=== PATIENT | male | born 1975 | race Hispanic/Latino ===

== ENCOUNTER 2025-05-14 08:11 | Emergency (ER) | payer OTHER ==
[~2025-05-14] VITALS: Ht 180.3 cm; Wt 86.2 kg
--- NOTE | 2025-05-14 08:51 | ERN ---
General Chief Complaint: Abdominal Pain Stated Complaint: ABDOMINAL PAIN Time Seen by MD: 08:13 Source: patient History of Present Illness Initial Comments Patient is a 49-year-old male coming in to be evaluated for suprapubic discomfort. Per patient this started suddenly earlier today. No fever no chills no vomiting. Allergies: Coded Allergies: No Known Allergies (Unverified Allergy, Unknown, 05/14/25) Past Medical History Past Medical History: No Pertinent History Past Surgical History: None ROS Dictation CONSTITUTIONAL: No chills, no fever, no weakness, no diaphoresis, no malaise. HEAD/FACE: No signs of trauma. EENT: No eye pain, no blurred vision, no tearing, no double vision, no ear pain, no ear discharge, no nose pain, no nasal congestion, no throat pain, no throat swelling, no mouth pain. RESPIRATORY: No cough, no orthopnea, no SOB, no stridor, no wheezing. CARDIOVASCULAR: No chest pain, no edema, no palpitations, no syncope. GASTROINTESTINAL/ABDOMINAL: abdominal pain, no constipation, no diarrhea, no nausea, no vomiting. GENITOURINARY: No abnormal discharge, no dysuria, no frequent urination, no hematuria. No complaints of pain in the genitals. MUSCULOSKELETAL: No back pain, no gout, no joint pain, no joint swelling, no muscle pain, no muscle stiffness, no neck pain. INTEGUMENTARY: No change in color, no change in hair/nails, no dryness, no lesion, no lumps, no rash. NEUROLOGICAL/PSYCH: No anxiety, not depressed, no emotional problem, no headache, no numbness, no pre-existing deficit, no history of seizures, no tremors, no weakness. HEMATOLOGIC/LYMPHATIC: Not anemic, no history of blood clots, no apparent bleeding, no bruising, glands not swollen. All Systems Negative, Except as Noted. Physical Exam Physical Exam Dictation VITAL SIGNS: Reviewed. GENERAL APPEARANCE: Alert, oriented x3, no acute distress, obese. HEAD AND FACE: Non-traumatic. EYES: PERRL, pink conjunctivas, eyelid no trauma, anterior chamber clear. EARS: Pinnas intact and no signs of trauma or erythema. Ear canals clear and no discharge. TMs no erythema. NOSE: No discharge, no bleeding. OROPHARYNX: Mouth normal, teeth no caries, tongue pink. Pharynx clear, no erythema. Tonsils no exudates, no abscesses noted. Mucous membrane moist. NECK: Supple, non-tender, no thyromegaly, no masses, no JVD, no bruits. BREAST: Deferred. CHEST: No tenderness, no crepitus, no paradoxical movement, no retractions. LUNGS: Clear, well-ventilated, symmetric, no rales, no wheezing, no rhonchi, no stridor, good breath sounds bilaterally. HEART: Regular rate, regular rhythm, no murmur, no gallops. VASCULAR: No peripheral edema. ABDOMEN: Soft, positive bowel sounds, nondistended, no guarding, suprapubic discomfort, umbilical pain, no rebound, no masses no hepatomegaly, no splenomegaly, no Freitas's sign, no hernias. RECTAL: Deferred. GENITAL: Deferred. NEUROLOGICAL: Normal speech, gross motor function intact, gross sensory function intact. MUSCULOSKELETAL: Neck nontender, full range of motion, back nontender, full range of motion. EXTREMITIES: Nontender, full range of motion. SKIN: Color pink, dry, no turgor, no rash, no lacerations, no abrasions, no contusions. LYMPHATICS: Deferred. Results Laboratory and Microbiology Labs Reviewed?: Yes EKG/XRAY/US/CT/MRI Ultrasound Comment Ultrasound abdomen-umbilical hernia MDM MDM: Differential diagnosis: Umbilical hernia, abdominal pain, muscle strain Rationale: Tests considered and ordered secondary to shared decision making include: Previous outside records reviewed: Old ER visits. Risk of complication and/or morbidity or mortality of patient management: None Medications-Per medication reconciliation Need for hospitalization: Patient does not meet criteria for hospitalization. Patient is a 49-year-old male coming in to be evaluated for pubic medical discomfort. On physical exam patient does have an umbilical hernia ultrasound confirms it. Umbilical hernia was reduced and patient's symptoms improved significantly. Abdominal binder divided. It did advised him appropriate follow up with PCP in 1-2 days ED Course Orders Procedure Category Date Status Time Us Abd Limited/Abd US 05/14/25 Taken Wall 08:14 Vital Signs Date Time Temp Pulse Resp B/P (MAP) Pulse Ox O2 Delivery O2 Flow Rate FiO2 05/14/25 08:24 97.5 18 123/72 99 Room Air* 0 21 05/14/25 08:12 97.7 50 16 119/76 99 Room Air 0 Procedure Dictation -umbilical hernia- reduction successful DX & DISP Disposition: Discharge Departure Impression: Primary Impression: Umbilical hernia Condition: Stable Additional Instructions: FOLLOW-UP WITH PRIMARY CARE PROVIDER IN 1 TO 2 DAYS. TAKE MEDICATIONS DIRECTED HERE IN THE EMERGENCY ROOM. OKAY TO CONTINUE HOME MEDICATIONS UNLESS OTHERWISE DISCUSSED DURING YOUR VISIT IN THE EMERGENCY ROOM TODAY. RETURN TO YOUR NEAREST EMERGENCY ROOM IF SYMPTOMS WORSEN OR IF THERE IS NO IMPROVEMENT. CALL 911 IF YOU NEED IMMEDIATE ASSISTANCE. TAKE TYLENOL [id number] NEEDED AND IF NO CONTRAINDICATIONS ARE PRESENT. INCREASE ORAL HYDRATION. A WOUND CULTURE OR URINE CULTURE WAS ORDERED HERE IN THE EMERGENCY ROOM DEPARTMENT PLEASE FOLLOW-UP WITH PRIMARY CARE PROVIDER AND ADVISE THEM TO GET REPORTS FROM OUR FACILITY. IF YOU HAD ANY MATTIE WRAP/SPLINTS THAT WERE APPLIED HERE, PLEASE DO NOT REMOVE THEM UNTIL YOU SEE YOUR PRIMARY CARE OR SPECIALTY. Referrals: Referrals: SELF,REFERRAL (PCP) ANDRES CARDOSO LUIS A MD Time of Disposition: 08:51 PEREZ FOUNTAIN MD May 14, 2025 08:51
--- NOTE | 2025-05-14 08:56 | HMCIMG ---
US ABD LIMITED/ABD WALL REASON: umbilical hernia. COMPARISON: None TECHNIQUE: Ultrasound of the periumbilical area was obtained. FINDINGS: Note is made of fat-containing umbilical hernia measuring 3.6 x 1.4 x 2.8 cm. IMPRESSION: Findings as described above.
[2025-05-14 09:03] VITALS: BP 126/76; PULSE 53; RESP 16; TEMP 97.5; O2SAT 99
== END 2025-05-14 09:15 | disposition home or self-care (01) ==
LOC: EDH 08:11
DX: K42.9 Umbilical hernia without obstruction or gangrene (principal)
CPT/HCPCS: 76705; 99284

== ENCOUNTER 2025-05-22 23:57 | Emergency (ER) | payer OTHER ==
[~2025-05-22] VITALS: Ht 180.3 cm; Wt 85.7 kg
--- NOTE | 2025-05-23 00:29 | ERN ---
ED Note History of Present Illness Stated Complaint: ABD PAIN Chief Complaint: Abdominal Pain Time Seen by MD: 00:13 Time Seen by Midlevel: 00:14 Dictation: 50-year-old male presents to the emergency department due to reported having diffuse abdominal pain that began yesterday. Patient states that he is concerned due to having a hernia and believes that this might be related to it. He states that he did feel febrile earlier today but can not confirm an actual confirmation of the fever. He reports having some chills. At this time, his level of discomfort is rated as an 8 out of therapy upon initial evaluation, the patient presents mildly uncomfortable looking. Allergies: Coded Allergies: No Known Allergies (Unverified Allergy, Unknown, 05/14/25) Emergency Care COMMUTATOR REPAIRER: None Past Medical History Past Medical History: No Pertinent History Surgical History: None PSYCH History: no pertinent psych hx RN Note Reviewed/Agreed w/PFSH: Yes Review of System Dictation Constitutional: Chills Abdomen/GI: Abdominal pain Initial Vital Sign VS Vital Signs Date Time Temp Pulse Resp B/P (MAP) Pulse Ox O2 Delivery O2 Flow Rate FiO2 05/22/25 23:58 97.7 78 16 112/73 98 Room Air 05/23/25 00:10 0 21 Physical Exam Dictation General: awake, alert, NAD Head/Face: Normocephalic, atraumatic Eyes: PERRL, EOMI ENT: Oral mucosa moist Neck: Trachea midline, supple Cardiovascular: RRR, no edema Respiratory: Symmetrical, non-labored Abdomen: Soft, diffuse tenderness, non-distended, voluntary guarding Skin: Warm, dry, good turgor, no rash MS/Extremity: Pulses equal, no cyanosis, neurovascular intact, FROM Neuro: COAx4, GCS 15, steady gait, Psych: Normal behavior, mood, and affect normal Results (Laboratory/Radiology) Laboratory/Radiology Laboratory Tests Test 05/23/25 00:35 White Blood Count 7.7 K/uL (4.8-10.8) Red Blood Count 4.72 MIL/uL (4.50-6.20) Hemoglobin 14.5 g/dL (14.0-18.0) Hematocrit 42.7 % (42-54) Mean Corpuscular Volume 90.5 fL (79-99) Mean Corpuscular Hemoglobin 30.7 pg (27.0-33.0) Mean Corpuscular Hemoglobin Concent 34.0 g/dL (32.0-36.0) Red Cell Distribution Width 12.5 % (11.0-15.5) Platelet Count 218 K/uL (130-400) Mean Platelet Volume 11.1 fL (7.5-10.5) H Immature Granulocyte % (Auto) 0.3 % (0-1) Neutrophils (%) (Auto) 78.6 % (40.0-77.0) H Lymphocytes (%) (Auto) 12.8 % (21.0-51.0) L Monocytes (%) (Auto) 7.5 % (3.0-13.0) Eosinophils (%) (Auto) 0.5 % (0.0-8.0) Basophils (%) (Auto) 0.3 % (0.0-5.0) Neutrophils # (Auto) 6.1 K/uL (1.8-7.7) Lymphocytes # (Auto) 1.0 K/uL (1.0-4.8) Monocytes # (Auto) 0.6 K/uL (0.1-1.0) Eosinophils # (Auto) 0.04 K/uL (0.00-0.70) Basophils # (Auto) 0.02 K/uL (0.00-0.20) Absolute Immature Granulocyte (auto 0.02 K/uL (0-1) Nucleated Red Blood Cells 0.0 % (0.0-0.19) Sodium Level 139 mmol/L (136-145) Potassium Level 3.5 mmol/L (3.5-5.1) Chloride Level 101 mmol/L (101-111) Carbon Dioxide Level 27 mmol/L (21-32) Blood Urea Nitrogen 7 mg/dL (7-18) Creatinine 0.9 mg/dL (0.5-1.3) Glomerular Filtration Rate Calc 105 mL/min (>90) Random Glucose 94 mg/dL (70-105) Total Calcium 8.7 mg/dL (8.5-10.1) Total Bilirubin 0.4 mg/dL (0.2-1.0) Aspartate Amino Transf (AST/SGOT) 14 U/L (10-37) Alanine Aminotransferase (ALT/SGPT) 41 U/L (12-78) Alkaline Phosphatase 71 U/L (50-136) Total Protein 7.0 g/dL (6.0-8.3) Albumin 3.4 g/dL (3.5-5.0) L Lipase 26 U/L (16-77) Labs Reviewed?: Yes CT Scan Comment: CT abdomen pelvis with IV contrast revealing an uncomplicated umbilical hernia as interpreted by the radiologist. ED Course ED Course Orders Procedure Category Date Status Time Cbc With Differential LAB 05/23/25 Complete 00:16 Comprehensive LAB 05/23/25 Complete Metabolic Panel 00:16 Urinalysis Profile LAB 05/23/25 Logged 00:16 Saline Lock Iv CPOE 05/23/25 Transmitted 00:16 Ketorolac PHA 05/23/25 Complete Tromethamine 30mg/Ml 00:30 Ct Abdomen/Pelvis CT 05/23/25 Resulted W/Contrast 00:16 Lipase LAB 05/23/25 Complete 00:16 Iohexol (Omnipaque) PHA 05/23/25 Complete 01:30 Current Medications Medications (Trade) Dose Ordered Sig/Rachael Route PRN Reason Start Time Stop Time Status Last Admin Dose Admin Iohexol (Omnipaque) 75 ml STK-MED ONCE IV 05/23/25 01:30 05/23/25 01:31 DC Ketorolac Tromethamine (toRADol) 30 mg ONCE ONCE IVP 05/23/25 00:30 05/23/25 00:31 DC 05/23/25 00:51 Vital Signs Date Time Temp Pulse Resp B/P (MAP) Pulse Ox O2 Delivery O2 Flow Rate FiO2 05/23/25 01:26 98.6 73 18 119/69 97 Room Air* 0 21 05/23/25 00:10 98.8 71 18 120/64 98 Room Air* 0 21 05/22/25 23:58 97.7 78 16 112/73 98 Room Air Medical Decision Making MDM MDM: Differential diagnosis: Acute abdominal pain, small-bowel obstruction, incarcerated hernia Rationale: Tests considered and ordered secondary to shared decision making include: Previous outside records reviewed: Old ER visits. Risk of complication and/or morbidity or mortality of patient management: None Medications-Per medication reconciliation Need for hospitalization: Patient does not meet criteria for hospitalization. Need for emergency major/minor surgery: No There are no social concerns with this patient. Prescription drug management Prescriptions will include symptomatic care Patient's prior external medical records from other ER visits were reviewed by me as indicated. Prior testing and results from previous visits were reviewed. Prior tests were taken into account with medical decision making and resource utilization, independent historian/historians were used to obtain complete medical history. I independently interpreted the test that were performed, results were reviewed by me and considered findings on radiology if ordered. Medical management and examination interpretation discussions were had by me with other qualified healthcare professionals as indicated for the patient's care. DX & DISP Disposition: Discharge Departure Impression: Primary Impression: Acute abdominal pain Additional Impression: Umbilical hernia Condition: Stable Referrals: SELF,REFERRAL (PCP) Time of Disposition: 03:04 ROMINA RON May 23, 2025 00:29
[2025-05-23 00:42] LABS: IMMATURE GRANULOCYTE ABSOLUTE 0.02 K/uL (0-1); NUCLEATED RED BLOOD CELLS 0.0 % (0.0-0.19); PLATELET COUNT (AUTO) 218 K/uL (130-400); RED BLOOD CELL COUNT(AUTO) 4.72 MIL/uL (4.50-6.20); RED CELL DISTRIBUTION WIDTH 12.5 % (11.0-15.5); WHITE BLOOD COUNT (AUTO) 7.7 K/uL (4.8-10.8)
[2025-05-23 01:01] LABS: CREATININE 0.9 mg/dL (0.5-1.3); GLOMERULAR FILTR. RATE CALC 105.0 mL/min (>90); GLUCOSE,RANDOM 94.0 mg/dL (70-105); SODIUM SERUM 139.0 mmol/L (136-145); UREA NITROGEN, BLOOD 7.0 mg/dL (7-18)
[2025-05-23 01:05] LABS: ASPARTATE AMINOTRANSFERASE 14.0 U/L (10-37); TOTAL PROTEIN, SERUM 7.0 g/dL (6.0-8.3)
[2025-05-23] MEDS ORDERED: IOHEXOL-350 75 ML VIAL IV ONE (01:30)
--- NOTE | 2025-05-23 02:23 | HMCIMG ---
EXAM: CT Abdomen and Pelvis with IV contrast CLINICAL HISTORY: Pain. TECHNIQUE: Postcontrast thin collimated axial CT images of the abdomen and pelvis were obtained with sagittal and coronal reformatted images also submitted. CT scan is done according to ALARA (As Low As Reasonably Achievable). COMPARISON: CT abdomen pelvis dated 02/03/2011. FINDINGS: 1.3 cm left lower lobe pulmonary nodule. Symmetrical dependent atelectasis in the bilateral posterior basal lungs. 0.9 cm hypodense lesion with peripheral nodular enhancement in the early postcontrast phase images and homogeneous enhancement to the liver parenchyma on delayed phase images, compatible with a hemangioma. Partially contracted gallbladder could be physiological. No focal abnormality within the pancreas, spleen, or adrenals. 0.4 cm nonenhancing fat density lesion in the right renal upper pole cortex, could be a tiny angiomyolipoma. Unremarkable urinary bladder. The prostate is within normal limits. Tiny hiatal hernia. Mild diffuse mucosal thickening in the stomach, small, and large bowel loops, likely acute enterocolitis. Unremarkable appendix. Small uncomplicated fat-containing umbilical hernia. Grossly unremarkable abdominal vessels. No pathological lymphadenopathy in the abdomen or pelvis. No ascites or pneumoperitoneum. No acute bony abnormality is evident. IMPRESSIONS: Acute enterocolitis is evident. Tiny hiatal hernia. Hepatic hemangioma. 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 Small uncomplicated fat-containing umbilical hernia. The findings are new compared to the previous CT dated 02/03/2011. /Clare
[2025-05-23 03:32] VITALS: BP 121/58; PULSE 68; RESP 18; TEMP 98.6; O2SAT 98
== END 2025-05-23 03:42 | disposition home or self-care (01) ==
LOC: EDH 23:57
DX: R10.84 Generalized abdominal pain (principal); K42.9 Umbilical hernia without obstruction or gangrene
CPT/HCPCS: 99285; 80053; 83690; 85025; 36415; 74177; 96374; J1885; Q9967